=== PATIENT | female | born 1960 ===

== ENCOUNTER 2021-11-26 06:44 | Day surgery (SDC) | payer OTHER ==
[~2021-11-26] VITALS: Ht 154.9 cm; Wt 73.9 kg
[~2021-11-26 06:44] MED LIST: GLIPIZIDE; LANTUS; LOSARTAN POTASSI1 GM; NORVASC5 MG; TAMOXIFEN CITRA20 MG
== END 2021-11-26 11:55 | disposition home or self-care (01) ==
LOC: CIR.AMB 06:44
PROVIDERS: ATTEND Specialist
DX: N85.02 Endometrial intraepithelial neoplasia [EIN] (principal); Z20.822 Contact with and (suspected) exposure to COVID-19; Z88.2 Allergy status to sulfonamides; I10 Essential (primary) hypertension